=== PATIENT | female | born 1975 | race Caucasian/White ===

== ENCOUNTER 2017-01-26 18:36 | Emergency (ER) | payer OTHER ==
[2017-01-26] MEDS ORDERED: MORPHINE SULFATE 4 MG/ML SYRINGE ONE (19:52)
--- NOTE | 2017-01-27 07:47 | RAD ---
ANKLE-RIGHT 3 VIEW History: Ankle pain with swelling. Comparison: None. Findings: Views of the right ankle were obtained. Images demonstrate evidence of a fracture involving the anterior process of the calcaneus. Subtle ossific densities are also evident along the more plantar aspect of the lateral calcaneus as well. The distal tibia and fibula remain intact. The mortise joint is appropriate. The talar dome contour is within expected. Impression: 1. A fracture of the anterior process of the calcaneus with questionable avulsion fracture fragments along the more plantar lateral aspect of the calcaneus as well. The mortise joint remains intact. 2. A small anterior calcaneal spur.
--- NOTE | 2017-01-27 07:48 | RAD ---
FOOT RIGHT 3 VIEWS HISTORY: Injury. COMPARISONS: None. FINDINGS: 3 views of the right foot were performed demonstrating normal bony mineralization. There is evidence of a fracture involving the anterior process of the calcaneus best seen on the lateral view. The calcaneal angle remains appropriate. The remaining osseous structures appear to be intact. A small anterior calcaneal enthesophyte is evident. IMPRESSION: 1. A fracture involving the anterior process of the calcaneus. 2. A small anterior calcaneal spur.
== END 2017-01-26 20:32 | disposition home or self-care (01) ==
LOC: ED 18:36
DX: S92.001A Unspecified fracture of right calcaneus, initial encounter for closed fracture (principal); G89.29 Other chronic pain; M79.672 Pain in left foot; M79.671 Pain in right foot; F17.210 Nicotine dependence, cigarettes, uncomplicated; W10.9XXA Fall (on) (from) unspecified stairs and steps, initial encounter; Z79.899 Other long term (current) drug therapy; Z88.2 Allergy status to sulfonamides; Z88.8 Allergy status to other drugs, medicaments and biological substances